=== PATIENT | male | born 1950 | race Caucasian/White ===

== ENCOUNTER 2017-06-05 04:59 | Emergency (ER) | payer MEDICARE, MEDICAID | END 2017-06-05 08:11 | disposition home or self-care (01) | LOC: FTE 04:59 | DX: R05 Cough (principal) | CPT/HCPCS: 99284 ==

== ENCOUNTER 2017-06-14 06:27 | Emergency (ER) | payer MEDICARE, MEDICAID ==
[2017-06-14] MEDS: ALBUTEROL 0.083% (NEB) 2.5 MG/3 ML AMP NEB (07:19)
[2017-06-14] MEDS: IPRATROPIUM (NEB) 0.5 MG/2.5 ML AMP NEB (07:19)
== END 2017-06-14 08:55 | disposition left against medical advice (07) ==
LOC: FTE 06:27
DX: R05 Cough (principal)
CPT/HCPCS: 71045; 94664; 99283-25

== ENCOUNTER 2018-07-02 10:26 | Emergency (ER) | payer MEDICARE, MEDICAID | END 2018-07-02 11:40 | disposition home or self-care (01) | LOC: FTE 10:26 | DX: B86 Scabies (principal) | CPT/HCPCS: 99282 ==